=== PATIENT | male | born 1975 | race Hispanic/Latino ===

== ENCOUNTER 2025-06-05 16:24 | Emergency (ER) | payer SELFPAY ==
--- NOTE | ~2025-06-05 | XR_ITS ---
EXAMINATION: XR soft tissue neck, 06/05/2025 17:00 CDT HISTORY: possibly swallowed nail 2 days ago COMPARISON: No comparisons available. Technique: 2view. Findings: The soft tissues appear unremarkable. There is no distention of the pharynx or hypopharynx. No metallic radiopaque foreign body is identified. The osseous structures are unremarkable. IMPRESSION: No radiopaque foreign body identified Reviewed, dictated and finalized at location P.
--- NOTE | ~2025-06-05 | XR_ITS ---
EXAMINATION: XR abdomen/kub 1V, 06/05/2025 17:00 CDT HISTORY: possible swallowing a nail 2 days ago COMPARISON: No comparisons available. Technique: 3 view. Findings: Bowel gas pattern unremarkable. No obstruction. No free air. No abnormal calcifications No acute osseous abnormality. Impression: 1. There is no metallic radiopaque foreign body identified Reviewed, dictated and finalized at location P. Impression: 1. There is no metallic radiopaque foreign body identified
--- NOTE | 2025-06-05 16:34 | ED_ITS ---
HPI - General Adult General Stated complaint: Possibly Swallowed A Nail Time Seen by Provider: 06/05/25 16:25 Source: patient Mode of arrival: ambulatory Limitations: no limitations History of Present Illness HPI narrative: Patient is a 50-year-old male who presents for concern that he has a nail stuck in his throat. Patient states he was working on a house looking up at the ceiling when a 1 in finishing nail tilted back of his throat. Patient states he coughed up a little broad at that time but have not had any blood since. Denies any blood in stool or abdominal pain. Just reports discomfort to throat but is still able to talk and swallow normally. Related Data Home Medications ?Medication ?Instructions ?Recorded ?Confirmed ?Last Taken ?Type No Home Medications 06/05/25 06/05/25 U nknown History Allergies Allergy/AdvReac Type Severity Reaction Status Date / Time No Known Allergies Allergy Verified 06/05/25 16:53 Review of Systems Review of Systems: All systems reviewed & are unremarkable except as noted in HPI and below Constitutional: Constitutional: Denies body ache(s), Denies chills, Denies fatigue, Denies fever(s), Denies headache(s), Denies malaise and Denies weakness Eyes: Eyes: Denies blurry vision, Denies irritation and Denies loss of vision ENT: Denies otalgia, Denies headache(s), Denies nasal discharge, Denies sinus pain and Reports sore throat Cardiovascular: Cardiovascular: Denies chest pain, Denies irregular heart rhythm and Denies dyspnea Respiratory: Respiratory: Denies dyspnea Gastrointestinal: Gastrointestinal: Denies abdominal pain, Denies melena, Denies hematochezia, Denies diarrhea, Denies nausea and Denies vomiting Musculoskeletal: Musculoskeletal: Denies back pain, Denies myalgias and Denies arthralgias Integumentary/Breasts: Skin/Breast: Denies pruritus and Denies rash Neurologic: Denies headache(s), Denies loss of vision and Denies weakness Psychiatric: Psychiatric: Reports no additional psychiatric complaints Endocrine: Endocrine: Denies fatigue PMFSH Comments At time of signature, agree with nursing past medical, surgical, social and family history. There is no relevant family history pertinent to the presenting complaint. Exam Const: General: cooperative, healthy appearing, comfortable, no acute distress and well nourished Nutritional Appearance: well nourished Orientation/consciousness: patient oriented x3 Limitations: no limitations HENMT: Head: normal to inspection, normocephalic and atraumatic Ears: hearing grossly normal bilaterally and external ears normal Face/Nose/Sinus: Normal external nose present, normal facial exam and face symmetric Face and sinus: normal facial exam and face symmetric Mouth: Yes Normal oral and palatal mucosa present, Yes lip normal, Yes tongue normal, Yes Normal salivary glands and ducts present and Yes oropharynx normal Teeth and gingiva: dentition normal and gingiva normal Throat: posterior oropharynx normal, tonsils normal and uvula midline Eyes: General: appearance normal, both eyes and all related structures Alignment and Position: alignment normal and position normal Periorbital: periorbital findings normal Eyelids: eyelids normal Pupils: Equal, round and reactive pupils present EOM: EOMs intact bilaterally Neck: Neck: normal visual inspection, full ROM and supple Chest: Chest palpation & inspection: normal inspection of the chest Resp: Effort & Inspection: normal respiratory effort and able to speak in complete sentences Auscultation: clear to auscultation bilaterally Cardio: Rate: regular rate Rhythm: regular rhythm Heart sounds: S1 normal heart sound present and S2 normal heart sound present GI: Inspection: normal to inspection Skin: General skin exam: normal color and no rashes or lesions noted Neuro: General: patient oriented x3 and moves all extremities Cranial nerves: Yes Equal, round and reactive pupils present Speech: normal speech Gait exam (Neuro): Normal gait present Extrem: General: normal to inspection, full ROM and no edema Psych: Appearance: grossly normal and well kempt Mental Status: mental status grossly normal Speech and movement: Normal speech and movement present Affect: normal affect Attitude: cooperative Thought process: Normal thought process present Course Course Emergency Course: Patient is aware of diagnosis, understands and agrees to treatment plan. Anticipatory guidance given. Patient agrees to follow-up as directed and is aware of reasons to seek care at the emergency department. Portions of this record may have been created with voice recognition software Level of Care: Express Care Visit Vital Signs Vital signs: Reviewed Medical Decision Making MDM Narrative Medical decision making narrative: Pt well hydrated appearing, in no respiratory distress, hemodynamically stable. Recommend supportive care. The patient is stable at time of discharge the clinical impression was discussed and the patient was given the opportunity to ask questions, which were addressed as completely as possible given the information available at present. Anticipatory guidance and return to care precautions were discussed and the importance of primary care follow-up was stressed and encouraged. The patient voiced understanding of the plan, indications to return, and the need for follow-up. Exam findings show no acute concerns or changes Patient is appropriate for outpatient treatment and follow-up. Differential Diagnosis Differential Diagnosis: Foreign body in throat, throat trauma Vital Signs Vital Signs: Reviewed Imaging Data Radiologist's impression: EXAMINATION: XR soft tissue neck, 06/05/2025 17:00 CDT HISTORY: possibly swallowed nail 2 days ago COMPARISON: No comparisons available. Technique: 2view. Findings: The soft tissues appear unremarkable. There is no distention of the pharynx or hypopharynx. No metallic radiopaque foreign body is identified. The osseous structures are unremarkable. IMPRESSION: No radiopaque foreign body identified Reviewed, dictated and finalized at location P. EXAMINATION: XR abdomen/kub 1V, 06/05/2025 17:00 CDT HISTORY: possible swallowing a nail 2 days ago COMPARISON: No comparisons available. Technique: 3 view. Findings: Bowel gas pattern unremarkable. No obstruction. No free air. No abnormal calcifications No acute osseous abnormality. Impression: 1. There is no metallic radiopaque foreign body identified Reviewed, dictated and finalized at location P. Discharge Plan Discharge Clinical Impression: Throat irritation Patient Disposition: Home Condition: Stable Instructions: Foreign Body Ingestion (ED) Additional Instructions: X-ray shows no foreign bodies in throat and abdomen. Likely as past in stool. If you have any worsening sore throat, abdominal pain, difficulty swallowing or coughing up blood, vomiting blood or blood in stool go to the emergency department La radiograf?a no muestra cuerpos extra?os en la garganta ni en el abdomen. Probablemente se trate de luis en las heces. Si presenta empeoramiento del dolor de garganta, dolor abdominal, dificultad para tragar o tos con luis, v?mitos con luis o luis en las heces, acuda a urgencias. Patient Language: Iranian Follow-up/Referrals: Boris Chen MD [Physician, Family Practice] - 3 Days Referral Note: Establish care Time of Disposition: 17:49
[2025-06-05 16:39] VITALS: BP 130/85; PULSE 57; RESP 18; TEMP 36.7; O2SAT 98
== END 2025-06-05 17:55 | disposition home or self-care (01) ==
PROVIDERS: Emergency Provider Nurse Practitioner Family
DX: R07.0 Pain in throat (principal)
CPT/HCPCS: 70360; 74018; 99213; 99214; G0463